=== PATIENT | female | born 1980 | race Caucasian/White ===

== ENCOUNTER 2018-03-07 23:24 | Emergency (ER) | payer MEDICAID ==
[~2018-03-07] VITALS: Ht 152.4 cm; Wt 81.0 kg
[2018-03-08] MEDS ORDERED: SODIUM CHLORIDE 0.9% 1,000 ML IV ONE (02:06)
[2018-03-08] MEDS ORDERED: METOCLOPRAMIDE HCL 10MG/2ML VIAL IV ONE (02:15)
[2018-03-08] MEDS ORDERED: DIPHENHYDRAMINE 50MG/ML VIAL IV ONE (02:15)
[2018-03-08 04:17] VITALS: BP 109/61
== END 2018-03-08 05:12 | disposition home or self-care (01) ==
LOC: ER 03-08 00:01
DX: G43.909 Migraine, unspecified, not intractable, without status migrainosus (principal)
CPT/HCPCS: 81025; 96374; 96375; 99285; J1200; J2765; J7030; Z7610

== ENCOUNTER 2019-05-10 23:58 | Emergency (ER) | payer MEDICAID ==
[~2019-05-10] VITALS: Ht 144.8 cm; Wt 80.0 kg
[2019-05-11 00:10] VITALS: BP 131/69
== END 2019-05-11 03:15 | disposition left against medical advice (07) ==
LOC: ER 23:58
DX: R07.9 Chest pain, unspecified (principal); Z53.21 Procedure and treatment not carried out due to patient leaving prior to being seen by health care provider
CPT/HCPCS: 93005